=== PATIENT | female | born 1935 | race Caucasian/White ===

== ENCOUNTER 2020-04-22 07:51 | Inpatient (IN) | payer MEDICARE ==
[~2020-04-22] VITALS: Ht 160 cm; Wt 53.1 kg
[2020-04-22] MEDS ORDERED: NITROGLYCERIN PACKET 1 GM PACKET ONE (08:13)
--- NOTE | 2020-04-22 08:25 | NUR ---
patient bibra from home, c/o sob since this morning, on 02@2lpm via nc saturation of 96%, connected to the monitor and pulse ox. IV access initiated and blood drawn. kept comfortable, will continue to monitor accordingly. ZULEMA AV shunt. Last dialysis wednesday per patient.
[2020-04-22] MEDS ORDERED: NITROGLYCERIN PACKET 1 GM PACKET TD ONE (08:30)
[2020-04-22 08:31] LABS: BASOPHILS # (AUTO) 0.2 /CMM (0.0-0.2); BASOPHILS % (AUTO) 1.6 % (0.0-2.0); EOSINOPHILS % (AUTO) 3.5 % (0.0-6.0); HEMATOCRIT 33 % (33-45); HEMOGLOBIN 10.3 g/dL (11.5-14.8); LYMPHOCYTES # (AUTO) 2.6 /CMM (0.8-4.8); LYMPHOCYTES % (AUTO) 25.7 % (20.0-44.0); MEAN CORPUSCULAR HGB CONC 32 g/dl (31.0-36.0); MEAN CORPUSCULAR VOLUME 101 fL (82-100); MONOCYTES # (AUTO) 0.4 /CMM (0.1-1.30); MONOCYTES % (AUTO) 4.1 % (2.0-12.0); NEUTROPHILS # (AUTO) 6.5 /CMM (1.8-8.9); NEUTROPHILS % (AUTO) 65.1 % (43.0-81.0); PLATELET COUNT (AUTO) 305 /CMM (150-450); RED BLOOD CELL COUNT(AUTO) 3.25 MIL/uL (4.0-5.2)
--- NOTE | 2020-04-22 08:41 | NUR ---
daughter: Liliane Gutierrez [phone]
[2020-04-22 08:43] LABS: ALANINE AMINOTRANSFERASE 35 U/L (12-78); ALBUMIN 3.9 g/dL (3.4-5.0); ALKALINE PHOSPHATASE 118 U/L (46-116); ASPARTATE AMINOTRANSFERASE 52 U/L (15-37); BILIRUBIN,DIRECT 0.1 mg/dL (0.0-0.2); BILIRUBIN,TOTAL 0.4 mg/dL (0.2-1.0); CALCIUM, SERUM 8.5 mg/dL (8.5-10.1); CARBON DIOXIDE 28 mmol/L (21-32); CHLORIDE 103 mmol/L (98-107); CREATININE 6.3 mg/dL (0.6-1.3); GLUCOSE 233 mg/dL (74-106); POTASSIUM 5.6 mmol/L (3.5-5.1); SODIUM SERUM 142 mmol/L (136-145); TOTAL PROTEIN, SERUM 7.3 g/dL (6.4-8.2); UREA NITROGEN, BLOOD 59 mg/dL (7-18)
[2020-04-22] MEDS ORDERED: FUROSEMIDE 40 MG/4 ML VIAL ONE (08:59)
[2020-04-22] MEDS ORDERED: FUROSEMIDE 40 MG/4 ML VIAL IV ONE (09:00)
--- NOTE | 2020-04-22 09:01 | NUR ---
PAGED [facility] FOR CONSULT.
--- NOTE | 2020-04-22 09:13 | NUR ---
CALLED NURSING SUP FOR A TELE BED. IN A MEETING, WILL CALL BACK AFTER MEETING.
--- NOTE | 2020-04-22 09:18 | NUR ---
Dr. Riggins at bedside for eval
--- NOTE | 2020-04-22 09:30 | NUR ---
PAGED [facility].
--- NOTE | 2020-04-22 09:39 | NUR ---
NURSING SUP GAVE TELE BED 115-1.
[2020-04-22 10:00] VITALS: BP 146/74
--- NOTE | 2020-04-22 10:00 | NUR ---
RN OPENING NOTES PATIENT ARRIVED FROM ED WITH VISIBLE DISTRESS. VS STABLE. PATIENT SATURATING GAT 98% ON 2L O2 NC.PATIENT IS ALLERGIC TO PENICILLIN. MAIN CHIEF COMPLAINT (SOB). PATIENT REMAINS STABLE AT THIS TIME. PATIENT HAS A LFA 20 G, FLUSHING WELL. PATIENT IS ON A CARDIAC DIET. PATIENT IS ON EXTERNAL TELEMONITOR, SR HR 85. ALL NEEDS HAVE BEEN RENDERED AT THIS TIME. WILL CONTINUE TO MONITOR. ALL SAFETY MECHANISMS IN PLACE.
--- NOTE | 2020-04-22 10:39 | NUR ---
wheeled patient via gurney accompanied by RN and EMT in no distress. Imer RN at bedside to assume care.
[2020-04-22] MEDS ORDERED: ONDANSETRON HCL/PF 4 MG/2 ML VIAL IVP PRN (11:00)
[2020-04-22] MEDS ORDERED: ACETAMINOPHEN 325 MG TABLET PO PRN (11:00)
[2020-04-22] MEDS ORDERED: MAG HYDROX/AL HYDROX/SIMETH 30 ML UDC PO PRN (11:00)
[2020-04-22] MEDS ORDERED: Z GUARD REMEDY 2 OZ OINT TP PRN (11:00)
[2020-04-22] MEDS ORDERED: HYDROCODONE/APAP 5/325MG 1 EACH TABLET PO PRN (11:00)
[2020-04-22] MEDS ORDERED: MAGNESIUM HYDROXIDE 30 ML UDC PO PRN (11:00)
[2020-04-22] MEDS ORDERED: ATOR10TA PO (11:20)
[2020-04-22] MEDS ORDERED: LEVO50TA8 PO (11:20)
[2020-04-22] MEDS ORDERED: CARV25TA2 PO (11:20)
[2020-04-22] MEDS ORDERED: FURO40TA5 PO (11:20)
[2020-04-22] MEDS ORDERED: AMIO200T4 PO (11:20)
[2020-04-22] MEDS ORDERED: APIX2.5T PO (11:20)
[2020-04-22] MEDS ORDERED: TEMA15CA PO (11:20)
[2020-04-22 12:00] VITALS: BP 144/63
[2020-04-22 12:45] LABS: FERRITIN 1233 ng/mL (8-388)
--- NOTE | 2020-04-22 14:00 | NUR ---
SPOKE WITH THE PATIENT'S DAUGHTER ABOUT TRANSFERRING THE CLIENT TO OTHER FACILITY. THE REQUEST HAS BEEN NOTED TO THE DR IN CHARGE.
[2020-04-22] MEDS ORDERED: TEMAZEPAM 15 MG CAPSULE PO PRN (15:00)
[2020-04-22 16:00] VITALS: BP 136/58
[2020-04-22] MEDS: APIXABAN 2.5 MG TABLET PO SCH (16:13)
[2020-04-22] MEDS: CARVEDILOL 12.5 MG TABLET PO SCH (16:19)
--- NOTE | 2020-04-22 19:44 | NUR ---
RN CLOSING NOTES PATIENT REMAINS STABLE AT THIS TIME. VS STABLE. PATIENT IS ALERT AND ORIENTED X4. PATIENT SATURATING AT 98% ON 2L O2 NC.PATIENT IS ALLERGIC TO PENICILLIN. MAIN CHIEF COMPLAINT (SOB). PATIENT HAS A LFA 20 G, FLUSHING WELL. PATIENT IS ON EXTERNAL TELEMONITOR , SR, HR 75. ALL NEEDS HAVE BEEN RENDERED AT THIS TIME. WILL CONTINUE TO MONITOR. ALL SAFETY MECHANISMS IN PLACE. CALL LIGHT WITHIN REACH.
[2020-04-22 20:00] VITALS: BP 133/60
--- NOTE | 2020-04-22 20:00 | NUR ---
RN OPENING NOTE PT RECEIVED LAYING DOWN IN THE BED WITH NO DISTRESS. PT IS A/A/OX3. THERE IS NO S/S OF RESPIRATORY DISTRESS, PT HAS UNLABORED BREATHING. TELE MONITOR SHOWING HR IN 70s AND SR.PT HAS IV 20G ON LF HAND PATENT AND FLUSHES WELL, DRESSING IS DRY AND INTACT AN AV FISTULA ON RT UPPER ARM. SAFETY MEASURES IN PLACE BED AT LOWEST POSITION, LOCKED, CALL LIGHT IN REACH AND SIDE RAILS UPX2. WILL CONTINUE TO MONITOR.
[2020-04-22] MEDS ORDERED: HEPARIN SODIUM, PORCINE 5000 UNITS/1 ML VIAL SQ SCH (21:00)
[2020-04-22] MEDS ORDERED: ATORVASTATIN 10 MG TABLET PO SCH (22:00)
[2020-04-23] VITALS: BP 135/64
--- NOTE | 2020-04-23 | NUR ---
PAGED HEAD OF SALES AND MARKETING HOSPITALIST DR. HULL REGARDING NEGATIVE COVID SWAB RESULT, ALSO MADE AWARE PER PROTOCOL WE NEED TO TRANSFER PATIENTS TO CLEAN/DIFFERENT UNIT, ORDERED TO HOLD TRANSFERS UNTIL TOMORROW MORNING. LEAD TECHNICIAN MADE AWARE. WILL ATTEND TO ORDERS.
[2020-04-23 04:00] VITALS: BP 109/58
--- NOTE | 2020-04-23 06:00 | NUR ---
RN CLOSING NOTE PT IS SLEEPING THE BED COMFORTABLY. THERE IS NO S/S OF DISTRESS. PT HAS UNLABORED BREATHING. PT IS ON 2 L VIA NC SATTING 99%. VSS. NO ACUTE CHANGES DURING MY SHIFT.SAFETY MEASURES IN PLACE BED AT LOWEST POSITION, LOCKED, CALL LIGHT WITHIN REACH, SIDE RAILS UPX2. WILL ENDORSE TO INCOMING SHIFT FOR CONTINUITY OF CARE.
[2020-04-23 06:32] LABS: CALCIUM, SERUM 7.9 mg/dL (8.5-10.1); CARBON DIOXIDE 33 mmol/L (21-32); CHLORIDE 104 mmol/L (98-107); CREATININE 5.4 mg/dL (0.6-1.3); GLUCOSE 88 mg/dL (74-106); MAGNESIUM 1.8 mg/dL (1.8-2.4); PHOSPHORUS 3.8 mg/dL (2.5-4.9); POTASSIUM 4.1 mmol/L (3.5-5.1); SODIUM SERUM 144 mmol/L (136-145); UREA NITROGEN, BLOOD 43 mg/dL (7-18)
[2020-04-23 06:36] LABS: BASOPHILS # (AUTO) 0.1 /CMM (0.0-0.2); BASOPHILS % (AUTO) 1.3 % (0.0-2.0); EOSINOPHILS % (AUTO) 3.2 % (0.0-6.0); HEMATOCRIT 28 % (33-45); HEMOGLOBIN 8.9 g/dL (11.5-14.8); LYMPHOCYTES # (AUTO) 1.1 /CMM (0.8-4.8); LYMPHOCYTES % (AUTO) 16.4 % (20.0-44.0); MEAN CORPUSCULAR HGB CONC 32 g/dl (31.0-36.0); MEAN CORPUSCULAR VOLUME 99 fL (82-100); MONOCYTES # (AUTO) 0.4 /CMM (0.1-1.30); MONOCYTES % (AUTO) 6.3 % (2.0-12.0); NEUTROPHILS # (AUTO) 4.7 /CMM (1.8-8.9); NEUTROPHILS % (AUTO) 72.8 % (43.0-81.0); PLATELET COUNT (AUTO) 199 /CMM (150-450); WHITE BLOOD COUNT (AUTO) 6.5 K/uL (4.3-11.0)
[2020-04-23 07:19] LABS: CHOLESTEROL 130 mg/dL (<200); HDL CHOLESTEROL 58 mg/dL (40-60); LDL 55 mg/dL (0-99); TRIGLYCERIDES 68 mg/dL (30-150)
[2020-04-23] MEDS ORDERED: LEVOTHYROXINE SODIUM 50 MCG TABLET PO SCH (07:30)
[2020-04-23 07:46] LABS: THYROID STIMULATING HORMONE 98.042 uIU/mL (0.358-3.74)
[2020-04-23 08:00] VITALS: BP 128/63
[2020-04-23] MEDS ORDERED: AMIODARONE HCL 200 MG TABLET PO SCH (09:00)
[2020-04-23] MEDS ORDERED: FUROSEMIDE 40 MG TABLET PO SCH (09:00)
--- NOTE | 2020-04-23 09:12 | NUR ---
RN NOTES PT HAS BEEN TRANSFERRED TO ROOM 310-1, TRANSFER REPORT GIVEN TO SILVERIO EDMONDS FOR HOMER
[2020-04-23] MEDS: CARVEDILOL 12.5 MG TABLET PO SCH (10:01)
[2020-04-23] MEDS: APIXABAN 2.5 MG TABLET PO SCH (10:01)
[2020-04-23 13:10] VITALS: BP 101/60
--- NOTE | 2020-04-23 13:30 | NUR ---
CRIME SCENE TECHNICIAN NOTE Patient is medically cleared by the MD for discharge. Patient is A/O x4, showing no signs of acute distress or SOB, saturating 94% on RA. Vital signs stable. Patient refused skin assessment. DC instructions provided and patient verbalized understanding. All belongings are with the patient. IV line removed, ID band removed. All patient needs met, all due medications given, patient kept clean and dry throughout shift. Patient has left the unit on wheelchair en route to home in private car with daughter.
== END 2020-04-23 13:45 | disposition home or self-care (01) | DRG 291 ==
LOC: ER 08:08 → TELE1 09:42 → EDBD 09:42 → MED 04-23 09:07
PROVIDERS: ADMIT Nurse Practitioner Acute Care; ATTEND Nurse Practitioner Acute Care
PROC: 5A1D70Z Performance of Urinary Filtration, Intermittent, Less than 6 Hours Per Day (ICD-10-PCS; principal; 2020-04-22)
DX: I13.2 Hypertensive heart and chronic kidney disease with heart failure and with stage 5 chronic kidney disease, or end stage renal disease (principal); I50.31 Acute diastolic (congestive) heart failure; J96.01 Acute respiratory failure with hypoxia; N18.6 End stage renal disease; E87.2 Acidosis; Z99.2 Dependence on renal dialysis; I25.10 Atherosclerotic heart disease of native coronary artery without angina pectoris; E87.5 Hyperkalemia; I48.91 Unspecified atrial fibrillation; D63.8 Anemia in other chronic diseases classified elsewhere; Z79.01 Long term (current) use of anticoagulants; R74.0 Nonspecific elevation of levels of transaminase and lactic acid dehydrogenase [LDH]
CPT/HCPCS: 36415; 71045-TC; 80048-TC; 80061-TC; 80076-TC; 82728-TC; 83605-TC; 83615-TC; 83735-TC; 84100-TC; 84439-TC; 84443-TC; 84484-TC; 85025-TC; 85730-TC; 86140-TC; 86706; 86850-TC; 87040-TC; 87081-TC; 87340; G0378; J1940; U0003-CS